=== PATIENT | male | born 1970 | race African-American/Black ===

== ENCOUNTER 2016-06-24 12:53 | Inpatient (IN) ==
[2016-06-24] MEDS ORDERED: LASIX IV ONE (13:35)
--- NOTE | 2016-06-24 14:14 | ED EKG INTERP ---
EKG Interpretation - EKG Time of EKG reading by physician:: 14:02 EKG Read and Signed by:: Ascencion Cramer EKG Interpretation (*Must complete 3 of following elements*): Abnormal Rate: 95 (possible left atrial enlargement; left ventricular hypertrophy; nonspecific T wave abnormality ) Rhythm: NSR Attestation - Scribe Verification/Attestation Scribe:: Karen Hogan Acting as Scribe for:: Ascencion Cramer Scribe documention review:: This chart was documented by a scribe and accurately reflects the service the provider performed and the decisions made by the provider.
[2016-06-24 14:24] LABS: MANUAL DIFF NEEDED? NO
[2016-06-24 14:27] LABS: BASO% 0.1 % (0.0-0.8); HEMATOCRIT 24.6 % (42.0-52.0); HEMOGLOBIN 8.5 g/dL (14.0-18.0); IMM GRAN# 0.03 X1000 (0.0-0.04); IMM GRAN% 0.2 % (0.0-0.5); LYMPH# 1.05 X1000 (1.2-3.4); LYMPH% 6.2 % (20.5-51.1); MCH 28.2 PG (27-31); MCHC 34.6 g/dL (33-37); MCV 81.7 FL (81-99); MONO# 1.44 X1000 (0.11-0.59); MONO% 8.5 % (1.7-9.3); MPV 9.9 FL (7.4-10.4); PLT 193 X1000 (130-400); RBC 3.01 XMIL (4.7-6.1)
[2016-06-24] MEDS ORDERED: LABETALOL IV ONE ×2 (14:37→16:22)
[2016-06-24] MEDS ORDERED: LEVAQUIN 750 MG/D5W 150 ML IV ONE (14:37)
--- NOTE | 2016-06-24 14:44 | PROVIDER DOCUMENTATION ---
HPI-Respiratory General - General Chief Complaint: Cough Stated Complaint: COUGH, CONGESTED Time Seen by Provider: 06/24/16 13:16 Source: patient Allergies/Adverse Reactions: Patient Allergies Allergy/AdvReac Type Severity Reaction Status Date / Time No Known Allergies Allergy Verified 06/24/16 13:08 Home Medications: Home Medication List Medication Instructions Recorded Confirmed Last Taken Type Labetalol [Trandate] 200 mg PO BID 09/26/15 06/24/16 06/24/16 History Clonidine HCl 0.2 mg PO TID #90 tablet 03/23/16 06/24/16 06/24/16 Rx Lisinopril 20 mg PO BID #60 tablet 03/23/16 06/24/16 06/24/16 Rx Minoxidil 2.5 mg PO BID 03/23/16 06/24/16 06/24/16 History Calcitriol 0.5 mcg PO DAILY 06/24/16 06/24/16 06/24/16 History Iron Fum,Ps/FA/Vit B with C #9 1 each PO DAILY 06/24/16 06/24/16 06/24/16 History [Integra Plus Capsule] - History of Present Illness-Resp Nature of Presenting Problem: 46 y/o M brought to the ER by his mother after she noticed that he is having a bad cough while at [employer]. Patient denies fever, chills, SOB, chest pain, however his mother stated that his breathing is worse. Patient has a history of chronic kidney disease and has an AV fistula placed in left forearm "in case he will need dialysis soon as per his mother". Severity in ED: reports: moderate Onset/Duration: reports: 2 days ago Timing: reports: still present Context: reports: other Cough Quality/Degree: reports: productive cough Episode Frequency: no prior episodes Current Respiratory Medication Therapy: Initiated none Modifying Factors: improves with: nothing Associated Symptoms: reports: short of breath Similar Symptoms Previously?: No Recently seen or treated by another doctor?: Yes Review of Systems - Adult - REVIEW OF SYSTEMS - ADULT Constitutional: reports: no symptoms reported Eyes: reports: no symptoms reported Ears, Nose, Mouth & Throat: reports: no symptoms reported Cardiovascular: denies: chest pain, edema, orthopnea Respiratory: reports: cough, dyspnea on exertion, excessive sputum production Gastrointestinal: reports: no symptoms reported Genitourinary: reports: no symptoms reported Integumentary: reports: no symptoms reported Neurological: reports: no symptoms reported Psychiatric: reports: no symptoms reported Endocrine: reports: no symptoms reported Allergic/Immunologic: reports: no symptoms reported Past History - Adult - PAST MEDICAL HISTORY-ADULT Review of Records: reports: Nursing Assessment Review, Medications Reviewed Major Childhood Illnesses: reports: denies history Cardiovascular: reports: HTN Respiratory: reports: denies history Gastrointestinal: reports: denies history Genitourinary: reports: ESRD, kidney disease Musculoskeletal: reports: orthopedic injury Neurological: reports: TIA - PRIOR SURGERIES/PROCEDURES Surgical/Procedure History: reports: orthopedic (extremity) (shoulder) - IMMUNIZATION STATUS Childhood Immunizations: See Nurse Assessment Flu Vaccine: See Nurse Assessment Physical Exam-General - PHYSICAL EXAM-ADULT Initial Vital Signs Reviewed: Yes - CONSTITUTIONAL General Appearance: moderate distress, anxious - EYES Eyes: PERRL/EOMI - HEAD, EARS, NOSE, MOUTH & THROAT HENMT: normocephalic/atraumatic - NECK Neck: supple - RESPIRATORY Respiratory: no pleuratic chest pain, crackles, rales, wheezing - CARDIOVASCULAR Cardiovascular: no JVD, tachycardia - GASTROINTESTINAL (ABDOMEN) Abdominal Exam: normal bowel sounds, soft - LYMPHATIC Lymphatic: no adenopathy - MUSCULOSKELETAL Peripheral Pulses: dorsalis-pedis (R): 1+, dorsalis-pedis (L): 1+ - SKIN Integumentary: warm/dry - NEUROLOGIC Neurologic: grossly normal - PSYCHIATRIC Psych/Mental Status: normal mood/affect, oriented x 3 Progress - PLAN OF CARE/RESULTS Progress/Plan/Lab Results: Vital Signs - 24 hr 06/24/16 06/24/16 12:56 13:31 Temperature 99.1 F Pulse Rate 97 H 88 Respiratory 18 18 Rate Blood Pressure 235/105 202/103 O2 Sat by Pulse 97 98 Oximetry Laboratory Tests 06/24/16 14:14 WBC 16.97 H RBC 3.01 L Hgb 8.5 L Hct 24.6 L MCV 81.7 MCH 28.2 MCHC 34.6 RDW Std Deviation 14.9 H Plt Count 193 MPV 9.9 Immature Gran % (Auto) 0.2 Neut % (Auto) 85.0 H Lymph % (Auto) 6.2 L Laurel % (Auto) 8.5 Eos % (Auto) 0.0 Baso % (Auto) 0.1 Immature Gran # (Auto) 0.03 Neut # (Auto) 14.43 H Lymph # (Auto) 1.05 L Laurel # (Auto) 1.44 H Eos # (Auto) 0.00 Baso # (Auto) 0.02 - REASSESSMENT Reassessment #1 Status: improving Reassessment Comment: Blood pressure is being controlled as per protocol. Antibiotics and lasix. - XRAY 1 XRAY: Bilateral XRAY Study: Chest Impression: Abnormal XRAY Interpretation: Bilateral infiltrates. - CONSULTS/PCP/HOSPITALIST Notification #1 *Consult/PCP/Hospitalist*: Dr. Wang Time Discussed: 16:14 Consult Disposition: Admit Departure - Departure Time of Disposition Order: 16:15 DIAGNOSIS: Community acquired pneumonia, Acute on chronic renal failure Disposition: ADMITTED INPATIENT 09 Certified Medical Emergency: Emergent Condition: Fair Referrals: Marshall To MD [Primary Care Provider] -
[2016-06-24 15:06] LABS: AGAP 16; ALBUMIN 3.8 g/dL (3.5-5.0); ALKALINE PHOSPHATASE 89 U/L (32-122); BUN 68 mg/dL (8-22); CALCIUM 8.8 mg/dL (8.8-10.2); CHLORIDE 107 mmol/L (98-107); COSMO 296; DIRECT BILIRUBIN < 0.20 mg/dL (0.00-0.20); GOT 13 U/L (10-34); GPT 14 U/L (10-44); MAGNESIUM 1.9 mg/dL (1.5-2.7); POTASSIUM 4.6 mmol/L (3.5-5.1); SODIUM 138 mmol/L (136-145); TCO2 15 mmol/L (25-35); TOTAL BILIRUBIN 0.54 mg/dL (0.20-1.00); TOTAL PROTEIN 7.1 g/dL (6.3-8.3)
--- NOTE | 2016-06-24 15:14 | Diag Imaging Result Document ---
PROCEDURE NAME: CHEST-2 VIEWS - 06/24/2016 FRONTAL AND LATERAL CHEST, 3 VIEWS COMPARISON: 09/26/15 FINDINGS: There are dense bilateral infiltrates. Heart is borderline mildly prominent. No pleural effusions. IMPRESSION: Interval development of dense, bilateral infiltrates.
[2016-06-24 15:56] LABS: URINE MICRO REVIEW NEEDED? NO; URINE SOURCE CLEAN CATCH
[2016-06-24 15:59] LABS: BILIRUBIN URINE NEGATIVE (NEGATIVE); BLOOD URINE TRACE (NEGATIVE); COLOR STRAW; GLUCOSE URINE NEGATIVE (NEGATIVE); LEUKOCYTES URINE NEGATIVE (NEGATIVE); NITRITE URINE NEGATIVE (NEGATIVE); PROTEIN URINE 100 mg/dL (NEGATIVE); SP GRAVITY URINE 1.007; TURBIDITY URINE CLEAR (CLEAR); UR EPITHELIAL CELLS <10 /HPF (<10); URINE BACTERIA NEGATIVE /HPF; URINE RBC <10 /HPF (<10); URINE WBC <10 /HPF (<10); UROBILINOGEN URINE NORMAL (NORMAL)
[2016-06-24] MEDS ORDERED: APRESOLINE IV PRN (16:27)
[2016-06-24] MEDS ORDERED: ZITHROMAX 500 MG/NS 250 ML IV SCH ×2 (16:45→17:30)
[2016-06-24] MEDS ORDERED: DUONEB (A & A) INH PRN (16:45)
[2016-06-24] MEDS: PROTONIX IV SCH (17:00)
[2016-06-24] MEDS ORDERED: SODIUM CHLORIDE 0.9% INJ SCH (17:00)
--- NOTE | 2016-06-24 18:11 | Diag Imaging Result Document ---
PROCEDURE NAME: CT THORAX W/O CONTRAST - 06/24/2016 STUDY: CT chest with intravenous contrast. PROTOCOL: Dose reduction protocol. There are dense multifocal bilateral infiltrates. Each lobe is involved although only a small portion of the right middle lobe is involved. Findings most pronounced in the right lower lobe. No pleural effusions. The heart is enlarged. No thoracic aortic aneurysm. There are several calcified mediastinal and right hilar lymph nodes. IMPRESSION: 1. Dense multifocal bilateral pneumonia. 2. Cardiomegaly. A preliminary report was given at 5:06 p.m.
[2016-06-24] MEDS: CATAPRES PO SCH (18:27)
[2016-06-24] MEDS: ROCEPHIN 1 GM/NS 50 ML IV SCH (18:27)
[2016-06-24] MEDS: DUONEB (A & A) INH SCH (20:27)
--- NOTE | 2016-06-24 22:26 | HISTORY AND PHYSICAL ---
WORKFORCE DEVELOPMENT ASSISTANT: Iggy Carver MD CHIEF COMPLAINT: Cough. Congestion. Chills. HISTORY OF PRESENT ILLNESS: Mr. Sparks is a 46-year-old, gentleman with a history of CKD 5 who is followed by Dr. Carver and is not yet on dialysis. He also has a history of hypertension, previous TIAs, he has a 24-48 hours of worsening shortness of breath, cough, subjective chills and dyspnea on exertion. He denies any overt chest pain. No lower extremity orthopnea, no PND. Symptoms worsened today to the point where he had come to the ER for evaluation. In the ER, he had a chest x-ray which showed bilateral infiltrates and his lab work was consistent with leukocytosis and he is hypertensive with his blood pressure. Otherwise, he is stable. Blood cultures have been started, and we are now going to admit him for community acquired pneumonia. PAST MEDICAL HISTORY: 1. CKD 5. 2. Hypertension. 3. Previous history of TIAs with no residual neurologic deficits. PAST SURGICAL HISTORY: AV fistula recently placed, but not in use, right rotator cuff repair. SOCIAL HISTORY: Patient is . He has 1 daughter. He denies tobacco or drug use. He drinks very occasional alcohol. He is on disability. FAMILY HISTORY: Mother and father are both at the bedside. Both with hypertension and hyperlipidemia. REVIEW OF SYSTEMS: Fourteen-point review of systems obtained and found to be negative with the exception of the HPI. HOME MEDICATIONS: Calcitriol 0.5 mcg p.o. daily. Integra Plus capsule 1 each daily. Trandate 10 mg b.i.d. Minoxidil 2.5 mg b.i.d. Clonidine 0.2 mg p.o. t.i.d. Lisinopril 20 mg b.i.d. ALLERGIES: No known drug allergies. REVIEW OF SYSTEMS: 14 point review of systems obtained and found to be negative with the exception of the HPI. PHYSICAL EXAMINATION: VITAL SIGNS: Blood pressure is 204/99, heart rate 88, respiratory 23, O2 saturation 97% on room air. Temperature is 99.1 degrees. GENERAL: This is a well-developed, well-nourished, male, lying in hospital bed. No acute distress. NEUROLOGIC: The patient is awake, alert, and oriented. Follows commands without focal deficits. HEENT: Head is atraumatic and normocephalic. His pupils are equal, round, reactive to light. Oral mucosa is moist. Trachea is midline. No JVD or carotid bruits. CHEST: Coarse bilaterally. No increased work of breathing noted. CARDIOVASCULAR: Regular rate and rhythm. S1-S2 is noted. No murmurs, gallops, clicks, rubs. GI: Soft, nondistended, nontender. Bowel sounds positive. EXTREMITIES: Without edema, clubbing or cyanosis. Pulses are palpable bilaterally. DIAGNOSTIC DATA: Chest x-ray shows dense infiltrates bilaterally. CT of the chest without contrast is pending. WBC 16.97, hemoglobin 8.5, hematocrit 24.6, platelet count 193,000. Sodium 138, potassium 4.6, chloride 107, CO2 15, anion gap 16, BUN 68, creatinine 6.8. LFTs within normal limits. Magnesium 1.9. ProBNP 14,814. Lactate 1.7. Urinalysis is negative for acute process. ASSESSMENT/PLAN: 1. Community-acquired pneumonia: Blood cultures have been obtained. Broad-spectrum antibiotics initiated. We will continue with breathing treatments, gross pulmonary toilet and follow radiograph in the morning. 2. Chronic kidney disease stage 5: We will consult Dr. Carver to follow tomorrow morning. We will follow his creatinine closely and try to bring down his blood pressure. 3. Hypertension: Elevated at this time. We will continue his home medications and add intravenous hydralazine, labetalol if needed. 4. Anemia: Likely chronic disease related. We will check iron studies and continue his multivitamin. We will also check thyroid function, hemoglobin A1c and lipids. 5. We will add intravenous Protonix for gastrointestinal prophylaxis and heparin subcutaneous for deep venous thrombosis prophylaxis given his renal failure. Dictated by JERRY Perez for Leander Alcaraz MD
[2016-06-24] MEDS: HEPARIN SUBQ SCH (23:05)
[2016-06-24] MEDS: PRINIVIL PO SCH (23:05)
[2016-06-24] MEDS: TRANDATE PO SCH (23:05)
[2016-06-24] MEDS: LONITEN PO SCH (23:05)
[2016-06-25] MEDS: DUONEB (A & A) INH SCH ×4 (03:00→20:10)
[2016-06-25 05:53] LABS: IRON SATURATION 11 %; TIBC 200 ug/dL
[2016-06-25 06:00] LABS: AGAP 17; ALBUMIN 3.6 g/dL (3.5-5.0); BUN 72 mg/dL (8-22); CALCIUM 8.7 mg/dL (8.8-10.2); CHLORIDE 105 mmol/L (98-107); COSMO 297; HDL 48 mg/dL (35-55); HEMATOCRIT 22.3 % (42.0-52.0); HEMOGLOBIN 7.6 g/dL (14.0-18.0); LDL 38 mg/dL; MCH 27.5 PG (27-31); MCHC 34.1 g/dL (33-37); MCV 80.8 FL (81-99); MPV 10.3 FL (7.4-10.4); POTASSIUM 5.2 mmol/L (3.5-5.1); RBC 2.76 XMIL (4.7-6.1); SODIUM 138 mmol/L (136-145); TCO2 16 mmol/L (25-35); TOTAL IRON 21 ug/dL (53-167); TRIGLYCERIDES 71 mg/dL (39-160); UNBOUND IRON 179 ug/dL (112-346); VLDL 14 mg/dL
[2016-06-25 07:41] LABS: HEMOGLOBIN A1C 4.6 % (4.8-6.0)
[2016-06-25] MEDS: CATAPRES PO SCH ×3 (11:00→17:51)
[2016-06-25] MEDS: HEMOCYTE PLUS CAPSULE PO SCH (11:00)
[2016-06-25] MEDS: ROCALTROL PO SCH (11:01)
[2016-06-25] MEDS: PRINIVIL PO SCH ×2 (11:01→20:46)
[2016-06-25] MEDS: LONITEN PO SCH ×2 (11:01→20:47)
[2016-06-25] MEDS: HEPARIN SUBQ SCH ×2 (11:01→20:47)
[2016-06-25] MEDS: TRANDATE PO SCH ×2 (11:02→20:47)
--- NOTE | 2016-06-25 12:50 | Diag Imaging Result Document ---
PROCEDURE NAME: CHEST-2 VIEWS - 06/25/2016 CHEST, 2 VIEWS: COMPARISON: 06/24/2016. FINDINGS: Stable cardiomegaly. Stable extensive bilateral alveolar infiltrates. No pneumothorax or significant effusion. There are Elliot B lines. IMPRESSION: No change from prior.
[2016-06-25] MEDS: ROCEPHIN 1 GM/NS 50 ML IV SCH (16:05)
[2016-06-25] MEDS ORDERED: ZITHROMAX 500 MG/NS 250 ML IV SCH (17:00)
[2016-06-25] MEDS: PROTONIX IV SCH (17:51)
--- NOTE | 2016-06-25 21:11 | CONSULTATION ---
DATE OF CONSULTATION: 06/25/2016 REASON FOR ADMISSION: Community-acquired pneumonia. REASON FOR CONSULTATION: Acute on chronic kidney disease, assist with medical management. CONSULTING PHYSICIAN: Dr. Wang. HISTORY OF PRESENT ILLNESS: This is a 46-year-old gentleman well known to us for chronic kidney disease stage 5 with a baseline creatinine of 6.4 who has a available AV fistula but has not had to start dialysis at this point. The patient states that over the last 2 or 3 previous days he had some upper respiratory symptoms that however during denominational services today he became significantly short of breath and was brought to the emergency room for further workup and treatment. Chest x-ray showed bilateral infiltrates and elevated white count. He was treated with azithromycin and has been waiting for a medical bed. We been asked to see him secondary to his chronic kidney disease and acute on chronic renal function currently. The patient states that he is otherwise been in his usual state of health. He has no nausea, vomiting, anorexia. He states his energy level is not changed. He states urine output has not changed. PAST MEDICAL HISTORY: Chronic kidney disease stage 5, hypertension, previous TIA with no residual effect, he has anemia of chronic disease and hyperparathyroidism secondary to renal disease. PAST SURGICAL HISTORY: AV fistula left upper extremity that is mature, right rotator cuff repair. ALLERGIES: No known drug allergies. HOME MEDICATIONS: Calcitriol, Integra Plus, Trandate, minoxidil, clonidine, lisinopril. FAMILY HISTORY: Hypertension and hyperlipidemia. SOCIAL HISTORY: No tobacco or drug use, very limited ETOH use. REVIEW OF SYSTEMS: Pertinent positives noted above in the HPI. PHYSICAL EXAMINATION: Vital Signs: Temperature 99.3 degrees, pulse 98, respiratory rate 18, blood pressure 180/95, intake and output have not been measured. He is voiding. General: Middle-aged gentleman resting in bed. Awake alert, oriented x4 no acute distress. HEENT: Normocephalic, atraumatic. ASHANTI, conjunctivae pink. Oral mucosa is moist, dentition excellent. Neck: Supple, trachea midline. There is no JVD noted. Cardiovascular: Regular rate and rhythm. There is no murmur or gallop appreciated. Pulmonary: He has equal excursion. He does have rhonchi, rales noted bilaterally. He has no overt wheeze. He is on O2 supplementation via nasal cannula. Abdomen: Soft, positive bowel sounds. : Not inspected. He is voiding without difficulty. Extremities: No clubbing, cyanosis or edema. AV fistula to left upper extremity with a positive thrill. Integumentary: Skin is warm and dry without rash or lesion. Neuro: Grossly nonfocal. LAB DATA: WBC of 13.1, hemoglobin 7.6, hematocrit 22.3, platelet count of 192, 000. Sodium 138, potassium 5.2, CO2 , BUN 72, creatinine 7.2, calcium 8.7, phosphorus 3.2, albumin 3.6, magnesium 1.9. Has a ProBNP 14,800, lactate 1.7. He has positive proteinuria noted on a urinalysis. ASSESSMENT AND PLAN: 1. Chronic kidney disease stage 5 with acute kidney injury likely secondary to pneumonia as well as elevated blood pressure. He is on appropriately dosed antibiotics, will make no changes to that. We will adjust his minoxidil see if we can get some better control of this blood pressure. He has no absolute indication for dialysis at this time but he does have an AV fistula that is available if that need arises. Did discuss this with the patient and he is understanding of this. 2. Anemia chronic kidney disease. He is followed by Dr. Cervantes for iron infusion. I would hold those while he is in the hospital with active infection. Do agree with obtaining iron studies. 3. Electrolytes and acid-base balance. His electrolytes are acceptable, his acid-based balance he is a little bit acidotic. Will add some sodium bicarbonate. 4. Fluid volume. He is voiding, he does not appear overloaded on exam. Data reviewed, discussed with Sabra Ward on 06/25/16. I agree with the above assessment and plan of care. rg Dictated by JERRY Purcell for Iggy Carver MD [facility]
[2016-06-26] MEDS: DUONEB (A & A) INH SCH (03:48)
[2016-06-26 07:37] VITALS: BP 160/76
[2016-06-26 07:41] LABS: HEMATOCRIT 21.8 % (42.0-52.0); HEMOGLOBIN 7.2 g/dL (14.0-18.0); MCH 27.6 PG (27-31); MCV 83.5 FL (81-99); MPV 10.4 FL (7.4-10.4); RBC 2.61 XMIL (4.7-6.1)
[2016-06-26 07:58] LABS: ALBUMIN 3.2 g/dL (3.5-5.0); CALCIUM 8.5 mg/dL (8.8-10.2); POTASSIUM 4.7 mmol/L (3.5-5.1)
[2016-06-26] MEDS: HEPARIN SUBQ SCH (08:55)
[2016-06-26] MEDS: CATAPRES PO SCH (08:55)
[2016-06-26] MEDS: ROCALTROL PO SCH (08:56)
[2016-06-26] MEDS: LONITEN PO SCH (08:56)
[2016-06-26] MEDS: TRANDATE PO SCH (08:56)
[2016-06-26] MEDS: HEMOCYTE PLUS CAPSULE PO SCH (08:56)
[2016-06-26] MEDS ORDERED: FLUZONE QUAD 2016-2017 SYRINGE IM ONE (09:14)
--- NOTE | 2016-06-26 14:53 | DISCHARGE SUMMARY ---
ADMISSION DATE: 06/24/2016 DISCHARGE DATE: 06/26/2016 HISTORY OF PRESENT ILLNESS: This is a 46-year-old came with cough, congestion, chills had a history of chronic kidney disease stage [address] Carver not yet on dialysis. Also had a history of hypertension, previous TIAs, had a 24-48 hour worsening shortness of breath, cough, subjective chills, dyspnea on exertion, denied any overt chest pain. No lower extremity orthopnea or PND. Symptoms worsened day admission when he came to the emergency room. Chest x- ray showed bilateral infiltrates and lab work was consistent with leukocytosis. He had hypertension and blood pressure. Otherwise he was stable. PAST MEDICAL HISTORY: Reviewed again, chronic kidney disease stage 5, hypertension, previous history TIAs with no neurologic deficits. HOSPITAL COURSE: He was admitted with community-acquired pneumonia. Blood cultures were obtained. Broad-spectrum antibiotics started with underlying chronic kidney disease Dr. Carver has followed. Chest x-ray showed no change, stable extensive bilateral alveolar infiltrates. No significant effusion. He remained stable and breathing was much more comfortable and Dr. Carver followed, did not see any change, did adjust his minoxidil see if he can get better control blood pressure. Patient felt much better on 06/26/2016 and requested to go home. Chest CT was done, it showed dense multifocal bilateral pneumonia and clinically improved. No growth from blood cultures. [place] he could go home. Will continue him on antibiotics, he is getting Rocephin. I will let him go home on Levaquin 250 mg p.o. daily for another 7 days. Can follow up with his primary care, with Dr. Carver. DISCHARGE MEDICATIONS: He will take his calcitriol 0.5 mg daily, Catapres 0.25 mg p.o. t.i.d., Trandate 200 mg b.i.d., Prinivil 20 mg b.i.d., minoxidil 5 mg b.i.d., multivitamin with Hemocyte Plus capsule once a day. FOLLOWUP: He is to follow up with primary care and also follow up with Dr. Carver.
--- NOTE | 2016-06-26 16:33 | PROGRESS NOTE ---
DATE: 06/26/2016 SUBJECTIVE: Mr. Sparks is resting quietly on the side of the bed. He is currently dressed. He states that he is being discharged home. He is to take oral antibiotics for his pneumonia with plans to follow up in our office in 1-2 weeks with labs at the end of the week. OBJECTIVE: His most recent vital signs: His temperature is 98.5 degrees, blood pressure 160/76, heart rate 93, respirations 20. He is on room air, last recorded saturation 96% . He has had 240 in. He has had 200+ out void. LABS: Sodium 140, potassium 4.7, chloride 107, CO2 16, BUN 73, creatinine 7.1, glucose is 104. His anion gap is 17, calcium 8.5, phosphorus 3.6, albumin 3.2. White count 10.82, hemoglobin 7.2, hematocrit 21.8, with a platelet count of 178,000. PHYSICAL EXAMINATION: General: This is a 46-year-old male. He is currently resting in bed. He is in no acute distress. Skin: Warm and dry. HEENT: Normocephalic, atraumatic. Conjunctivae pale. He has ASHANTI. Mucous membranes moist. Neck: Supple. Trachea midline. No JVD. Cardiovascular: Regular rate and rhythm. No murmur or gallop appreciated. Lungs: Clear to auscultation anteriorly. Equal excursion. He has no overt wheezes, crackles or rhonchi. He is currently on room air. Abdomen: Soft, nontender. Positive bowel sounds. Genitourinary: Not inspected. He has adequate urine out without difficulty voiding. Extremities: Have no clubbing or cyanosis. AV fistula remains to the left upper extremity, this has positive thrill, no drainage noted. Integumentary: Skin is warm and dry without rashes or lesions. Neurological: Alert and oriented x3. ASSESSMENT AND PLAN: 1. Acute kidney injury on chronic kidney disease stage 5. Patient's acute kidney injury has continued to improve. This is more than likely secondary to his pneumonia with an elevated blood pressure. He is currently on renal dosed antibiotics of Levaquin 250 mg once daily to be taken at home upon discharge. We have discussed coming in to our office with labs on Saturday and will further evaluation after his labs are obtained. Otherwise electrolytes and acid-base balance are stable. 2. Anemia. This remains stable but low. I would like to thank you for allowing us to follow with this patient. Data reviewed, discussed with Soraya Glynn on 06/26/16. I agree with the above assessment and plan of care. rg Dictated by JERRY Silva for Iggy Carver MD [facility]
== END 2016-06-26 09:34 | disposition home or self-care (01) | DRG 194 ==
LOC: ED 12:53 → UNDOADMIN 16:30 → EDIPHOLD 16:30 → 3N 20:10 → UNDOADMIN 20:10 → EDIPHOLD 20:29 → 3N 20:29
PROVIDERS: ATTEND Emergency Medicine
DX: J18.9 Pneumonia, unspecified organism (principal); N17.9 Acute kidney failure, unspecified; I12.0 Hypertensive chronic kidney disease with stage 5 chronic kidney disease or end stage renal disease; N18.5 Chronic kidney disease, stage 5; N25.81 Secondary hyperparathyroidism of renal origin; D63.8 Anemia in other chronic diseases classified elsewhere; Z86.73 Personal history of transient ischemic attack (TIA), and cerebral infarction without residual deficits; Z82.49 Family history of ischemic heart disease and other diseases of the circulatory system; Z79.899 Other long term (current) drug therapy
CPT/HCPCS: 71020; 71250; 80048; 80061; 80069; 80076; 81001; 82607; 82746; 83036; 83540; 83550; 83605; 83735; 83880; 84439; 85025; 85027; 87040; 94640; 94760; 94761; 94799; C9113; J0456; J0696; J1644; J1940; Q2038; S0139; S0164

== ENCOUNTER 2016-10-06 17:01 | Inpatient (IN) ==
--- NOTE | 2016-10-06 18:01 | PROVIDER DOCUMENTATION ---
Addendum entered and electronically signed by Melquiades Zelaya PA 10/08/16 17: 28: Progress - PLAN OF CARE/RESULTS Progress/Plan/Lab Results: Orders Category Date Time Status Admit - [facility] - [employer] [facility] [employer] [facility] Routine AdmDCTranf 10/06/16 20:37 Ordered Activity - Up with Assistance ORDERED Care 10/06/16 20:37 Active Guerrero Cath Insertion ORDERED Care 10/06/16 18:23 Completed Intake and Output-Strict ORDERED Care 10/06/16 20:37 Active Nursing- MD Consult Request ROUTINE Care 10/06/16 18:51 Completed Nursing- MD Consult Request ROUTINE Care 10/06/16 18:52 Completed Nursing- MD Consult Request ROUTINE Care 10/06/16 18:52 Completed Vital Signs Order Q1H Care 10/06/16 20:37 Completed Z-Document. for Tele Applied ORDERED Care 10/06/16 20:37 Active MD [Physician/Provider Consults] Routine Cons 10/06/16 18:50 Ordered MD [Physician/Provider Consults] Routine Cons 10/06/16 18:51 Ordered MD [Physician/Provider Consults] Routine Cons 10/06/16 18:52 Ordered Social Service Consult Routine Cons 10/06/16 20:37 Active NPO Diet 10/06/16 19:08 Completed CHEST-PORTABLE [RAD] Routine Exams 10/07/16 06:00 Completed CHEST-PORTABLE [RAD] Stat Exams 10/06/16 18:11 Completed ABG [RESP] Routine Lab 10/06/16 18:15 Completed ABG [RESP] Routine Lab 10/06/16 20:47 Completed ABG [RESP] Routine Lab 10/07/16 04:23 Completed CBC WITH DIFF [HEME] Routine Lab 10/07/16 04:20 Completed CBC WITH DIFF [HEME] Stat Lab 10/06/16 17:59 Completed CK TOTAL [CHEM] Q8H Lab 10/06/16 22:01 Completed CK TOTAL [CHEM] Q8H Lab 10/07/16 04:20 Completed CK TOTAL [CHEM] Q8H Lab 10/07/16 12:14 Completed COMPREHENSIVE METABOLIC PANEL [CHEM] Routine Lab 10/07/16 04:20 Completed COMPREHENSIVE METABOLIC PANEL [CHEM] Stat Lab 10/06/16 17:59 Completed Ddimer [D-DIMER] [CHEM] Stat Lab 10/06/16 17:59 Completed MAGNESIUM [CHEM] Routine Lab 10/07/16 04:20 Completed PRO B-NATRIURETIC PEPTIDE Stat Lab 10/06/16 17:59 Completed PROTIME WITH INR [COAG] Routine Lab 10/07/16 04:20 Completed PTT [COAG] Routine Lab 10/07/16 04:20 Completed TROPONIN T Q8H Lab 10/06/16 22:01 Completed TROPONIN T Q8H Lab 10/07/16 04:20 Completed TROPONIN T Q8H Lab 10/07/16 12:14 Completed TSH Stat Lab 10/06/16 22:01 Completed UA NIMS W/REFLEX CULT [URINALYSIS] Stat Lab 10/08/16 08:30 Completed Bumetanide [Bumex] Med 10/06/16 18:08 Discontinued 1 mg IV NOW ONE Bumetanide [Bumex] Med 10/06/16 18:03 Discontinued 2 mg .ROUTE .STK-MED ONE Heparin Med 10/06/16 21:00 Active 5,000 unit SUBQ Q12H Ipratropium [place] Neb [Atrovent Neb] Med 10/06/16 20:37 Active 0.5 mg INH RTQ4H Labetalol Med 10/06/16 18:18 Discontinued 20 mg .ROUTE .STK-MED ONE Labetalol Med 10/06/16 18:18 Discontinued 40 mg IV NOW ONE Levalbuterol Neb [Xopenex Neb] Med 10/06/16 20:37 Active 1.25 mg INH RTQ4H Nitroglycerin Med 10/06/16 18:38 Discontinued 1 inch .ROUTE .STK-MED ONE Nitroglycerin 50 mg/D5w Med 10/06/16 18:51 Discontinued 50 mg in 250 ml .ROUTE As Directed Nitroglycerin 50 mg/D5w Med 10/06/16 18:48 Active 50 mg in 250 ml IV 5 microgm/min Ondansetron [Zofran] Med 10/06/16 20:37 Active 4 mg IV Q4H PRN PRN Aerosol Treatments Routine Oth 10/06/16 20:37 Completed BIPAP Stat Oth 10/06/16 18:23 Completed Pulse Oximetry Routine Oth 10/06/16 20:37 Completed Telemetry [OM.EQ] Routine Oth 10/06/16 20:37 Active EKG [EKG] Routine Ther 10/07/16 08:00 Draft Echo Spec/Color Dop W/O Contra Routine Ther 10/06/16 20:37 Completed Transfer/Admit Order [TRANSFER] Routine Transfer 10/06/16 18:[address] Crain was notified when the patient decompensated. He went to the bedside and examined the patient. Dr. Crain agreed with all interventions and the plan of care, and contacted the hospitalist, Dr. Aleman, for admission. Result Diagrams: 10/07/16 04:20 10/07/16 04:20 Original Note: HPI-Respiratory General - General Chief Complaint: B/P Problems Stated Complaint: HIGH B/P,EDEMA Time Seen by Provider: 10/06/16 17:43 Source: patient, family Allergies/Adverse Reactions: Patient Allergies Allergy/AdvReac Type Severity Reaction Status Date / Time No Known Allergies Allergy Verified 06/24/16 13:08 Home Medications: Home Medication List Medication Instructions Recorded Confirmed Last Taken Type Labetalol [Trandate] 200 mg PO BID 09/26/15 06/24/16 06/24/16 History Clonidine HCl 0.2 mg PO TID #90 tablet 03/23/16 06/24/16 06/24/16 Rx Lisinopril 20 mg PO BID #60 tablet 03/23/16 06/24/16 06/24/16 Rx Calcitriol 0.5 mcg PO DAILY 06/24/16 06/24/16 06/24/16 History Iron Fum,Ps/FA/Vit B with C #9 1 each PO DAILY 06/24/16 06/24/16 06/24/16 History [Integra Plus Capsule] Levofloxacin [Levaquin] 250 mg PO DAILY #7 tablet 06/26/16 Unknown Rx Minoxidil [Loniten] 5 mg PO BID #60 tablet 06/26/16 Unknown Rx - History of Present Illness-Resp Nature of Presenting Problem: 46 YO BM with stage 4 renal failure presents with bilateral leg swelling x 2 days, HTN and SOB. NO hx of CHF; had pneumonia recently. Took one 40 mg Lasix today but otherwise isn't on a diuretic. Has had increased urination in the past few weeks. Took all of his BP meds today. Denies abdominal pain, fever, cough, chest pain. Not on dialysis, sees Dr. Carver regularly and is stable at stage 4. Quality of Pain: reports: pressure, tightness Severity in ED: reports: moderate Onset/Duration: reports: 2 days ago Timing: reports: still present Cough Quality/Degree: reports: no cough Episode Frequency: no prior episodes Current Respiratory Medication Therapy: Initiated none Modifying Factors: improves with: nothing Associated Symptoms: reports: shortness of breath. denies: chest pain/soreness , cough, dizziness, earache, facial pain, fever/chills, flu-like symptoms, headache, heart racing, hurts to breathe, hyperventilating, lightheadedness, muscle/bodyaches, nasal congestion, nasal drainage, sinus pain, sore throat, sweaty, wheezing Similar Symptoms Previously?: No Recently seen or treated by another doctor?: Yes (Dr. Cervantes) Review of Systems - Adult - REVIEW OF SYSTEMS - ADULT Constitutional: denies: chills, fever Eyes: denies: decreased vision, blurred vision, double vision Ears, Nose, Mouth & Throat: denies: ear pain, epistaxis, sinus problem, throat pain, throat swelling Cardiovascular: denies: chest pain, orthopnea, palpitations, syncope Respiratory: reports: shortness of breath. denies: chronic cough, cough, wheezing Gastrointestinal: denies: abdominal pain, diarrhea, nausea, vomiting Genitourinary: reports: frequency. denies: dysuria, discharge, hematuria, urgency Musculoskeletal: denies: bone pain, back pain, joint pain, joint swelling, neck pain Integumentary: denies: itching, rash, skin sores/ulcer, skin thickening Neurological: denies: dizziness/vertigo, headache/migraines Past History - Adult - PAST MEDICAL HISTORY-ADULT Review of Records: reports: Old Records Reviewed, Nursing Assessment Review, Medications Reviewed Major Childhood Illnesses: reports: denies history Cardiovascular: reports: HTN Respiratory: reports: denies history Gastrointestinal: reports: denies history Genitourinary: reports: ESRD, kidney disease Musculoskeletal: reports: orthopedic injury Neurological: reports: TIA - PRIOR SURGERIES/PROCEDURES Surgical/Procedure History: reports: orthopedic (extremity) (shoulder) - IMMUNIZATION STATUS Childhood Immunizations: See Nurse Assessment Flu Vaccine: See Nurse Assessment Physical Exam-General - PHYSICAL EXAM-ADULT Initial Vital Signs Reviewed: Yes - CONSTITUTIONAL General Appearance: appears well, alert, no apparent distress - EYES Eyes: PERRL/EOMI, pink conjunctivae. negative: anisocoria, conjuctival exudate , pale conjunctivae, photophobia, sclera injected, scleral icterus - HEAD, EARS, NOSE, MOUTH & THROAT HENMT: normocephalic/atraumatic, moist mucous membranes, pharynx normal. negative: angioedema, pharyngeal erythema, tonsillar exudate - NECK Neck: full range of motion, supple, normal inspection - RESPIRATORY Respiratory: chest non-tender, lungs clear, normal breath sounds, no pleuratic chest pain, no respiratory distress, no accessory muscle use, decreased breath sounds (lower right lobe). negative: crackles, rales, rhonchi, stridor, wheezing, retractions, splinting, decreased rate - CARDIOVASCULAR Cardiovascular: normal peripheral pulses, regular rate, rhythm, no gallop, no JVD, no murmur. negative: no edema - GASTROINTESTINAL (ABDOMEN) Abdominal Exam: normal bowel sounds, non tender, soft, no organomegaly, no pulsatile mass. negative: distended, guarding, rigid, rebound, tenderness - MUSCULOSKELETAL Extremity: normal range of motion, non-tender, no calf tenderness, swelling. negative: normal inspection (1+ pitting edema bilateral lower extremities. No cellulitis), no pedal edema (as above), deformity, erythema, inflammation, joint effusion Peripheral Pulses: radial (R): 3+, radial (L): 3+, dorsalis-pedis (R): 3+, dorsalis-pedis (L): 3+ - SKIN Integumentary: normal color, warm/dry, swelling - NEUROLOGIC Neurologic: rack pusher II-XII nml as tested, grossly normal - PSYCHIATRIC Psych/Mental Status: normal mood/affect, normal thought content, normal thought process Progress - PLAN OF CARE/RESULTS Progress/Plan/Lab Results: Vital Signs - 8 hr 10/06/16 17:24 10/06/16 18:12 10/06/16 18:23 Temperature 99.1 F Pulse Rate 92 H 113 H 102 H Respiratory Rate 18 29 H 30 H Blood Pressure 231/107 285/177 O2 Sat by Pulse Oximetry 98 90 L 91 L 10/06/16 18:29 10/06/16 18:33 10/06/16 18:37 Temperature Pulse Rate 82 81 83 Respiratory Rate 30 H 28 H 26 H Blood Pressure 208/120 191/116 O2 Sat by Pulse Oximetry 94 L 97 94 L 10/06/16 18:59 Temperature Pulse Rate 77 Respiratory Rate 28 H Blood Pressure 221/154 O2 Sat by Pulse Oximetry 97 Laboratory Results - last 24 hr 10/06/16 10/06/16 10/06/16 17:59 17:59 17:59 WBC 4.44 L RBC 3.76 L Hgb 11.0 L Hct 31.9 L MCV 84.8 MCH 29.3 MCHC 34.5 RDW Std Deviation 15.8 H Plt Count 178 MPV 10.0 Immature Gran % (Auto) 0.0 Neut % (Auto) 57.0 Lymph % (Auto) 25.2 Hyde % (Auto) 9.7 H Eos % (Auto) 7.2 Baso % (Auto) 0.9 H Immature Gran # (Auto) 0.00 Neut # (Auto) 2.53 Lymph # (Auto) 1.12 L Hyde # (Auto) 0.43 Eos # (Auto) 0.32 Baso # (Auto) 0.04 D-Dimer 1.34 H Specimen Type Sample Site pH pCO2 pO2 HCO3 Base Excess Oxyhemoglobin ABG O2 Sat (Calculated) ABG O2 Saturation ABG Carboxyhemoglobin ABG Methemoglobin Dillon Test A-a O2 Difference Total Hemoglobin Lactate Blood Gas Modality FiO2 % Sodium 143 Potassium 4.7 Chloride 105 Carbon Dioxide 21 L Anion Gap 17 BUN 62 H Creatinine 6.8 H Estimated GFR/1.73 m2 11 BUN/Creatinine Ratio 9 Glucose 93 Calculated Osmolality 302 Calcium 9.5 Total Bilirubin 0.50 AST 11 ALT 18 Alkaline Phosphatase 64 Qdc-P-Nwndomfjkjp Pept Total Protein 7.1 Albumin 4.5 Globulin 2.6 Albumin/Globulin Ratio 1.7 10/06/16 10/06/16 17:59 18:15 WBC RBC Hgb Hct MCV MCH MCHC RDW Std Deviation Plt Count MPV Immature Gran % (Auto) Neut % (Auto) Lymph % (Auto) Hyde % (Auto) Eos % (Auto) Baso % (Auto) Immature Gran # (Auto) Neut # (Auto) Lymph # (Auto) Hyde # (Auto) Eos # (Auto) Baso # (Auto) D-Dimer Specimen Type ARTERIAL Sample Site R RADIAL pH 7.16 L* pCO2 63 H* pO2 67 HCO3 19.6 L Base Excess -6.7 L Oxyhemoglobin 90.9 L ABG O2 Sat (Calculated) 14.1 L ABG O2 Saturation 94.9 L ABG Carboxyhemoglobin 4.20 H ABG Methemoglobin 0.0 Dillon Test YES A-a O2 Difference 567.0 Total Hemoglobin 11.0 L Lactate 1.00 Blood Gas Modality NRB FiO2 % 100.0 Sodium Potassium Chloride Carbon Dioxide Anion Gap BUN Creatinine Estimated GFR/1.73 m2 BUN/Creatinine Ratio Glucose Calculated Osmolality Calcium Total Bilirubin AST ALT Alkaline Phosphatase Uda-B-Dhnthgbfefz Pept 8651 H Total Protein Albumin Globulin Albumin/Globulin Ratio Orders Category Date Time Status Guerrero Cath Insertion ORDERED Care 10/06/16 18:23 Active Nursing- MD Consult Request ROUTINE Care 10/06/16 18:51 Active Nursing- MD Consult Request ROUTINE Care 10/06/16 18:52 Active Nursing- MD Consult Request ROUTINE Care 10/06/16 18:52 Active MD [Physician/Provider Consults] Routine Cons 10/06/16 18:50 Ordered MD [Physician/Provider Consults] Routine Cons 10/06/16 18:51 Ordered MD [Physician/Provider Consults] Routine Cons 10/06/16 18:52 Ordered CHEST-PORTABLE [RAD] Stat Exams 10/06/16 18:11 Completed ABG [RESP] Routine Lab 10/06/16 18:15 Completed CBC WITH DIFF [HEME] Stat Lab 10/06/16 17:59 Completed COMPREHENSIVE METABOLIC PANEL [CHEM] Stat Lab 10/06/16 17:59 Completed Ddimer [D-DIMER] [CHEM] Stat Lab 10/06/16 17:59 Completed PRO B-NATRIURETIC PEPTIDE Stat Lab 10/06/16 17:59 Completed UA NIMS W/REFLEX CULT [URINALYSIS] Stat Lab 10/06/16 17:56 Uncollected Bumetanide [Bumex] Med 10/06/16 18:08 Discontinued 1 mg IV NOW ONE Bumetanide [Bumex] Med 10/06/16 18:03 Discontinued 2 mg .ROUTE .STK-MED ONE Furosemide [Lasix] 200 mg Med 10/06/16 20:00 Active 0.9% Sodium Chloride Inj [Ns] 25 ml IV Q8H Labetalol Med 10/06/16 18:18 Discontinued 20 mg .ROUTE .STK-MED ONE Labetalol Med 10/06/16 18:18 Discontinued 40 mg IV NOW ONE Nitroglycerin Med 10/06/16 18:38 Discontinued 1 inch .ROUTE .STK-MED ONE Nitroglycerin 50 mg/D5w Med 10/06/16 18:51 Discontinued 50 mg in 250 ml .ROUTE As Directed Nitroglycerin 50 mg/D5w Med 10/06/16 18:48 Active 50 mg in 250 ml IV 5 microgm/min BIPAP Stat Oth 10/06/16 18:23 Completed EKG [EKG] Stat Ther 10/06/16 17:56 Ordered Transfer/Admit Order [TRANSFER] Routine Transfer 10/06/16 18:52 Ordered -A nurse stopped in the hallway to tell me that the pt was in distress. I called for Melquiades Zelaya PA-C, to assist. Upon listening to the pt's lungs it was apparent that he was in possible flash pulmonary edema. I placed him on a NRB, paged respiratory, ordered Bumex and had a BiPAP brought down. After medication administered pt is now stable and feeling significantly better. hospitalist service will be called for admission. - Joao Ureña PA-C Result Diagrams: 10/06/16 17:59 10/06/16 17:59 - REASSESSMENT Reassessment #1 Time Reassessed: 19:40 (Received a call from the front, pt went into respiratory distress. Joao Ureña PA-C was in the hallway and placed pt on O2 and Bipap, given Bumex and pt was able to recover breathing. Discussed elevated BP with Dr. Crain, recommends Labetolol 40 mg IV. BP came down after administration. Started Nitro paste and kept on Bipap. Pt feeling better after treatment. Recommend admission to ICU and consult with Dr. Carver. Discussed with Dr. Aleman who is admitting pt. ) - CONSULTS/PCP/HOSPITALIST Notification #1 *Consult/PCP/Hospitalist*: Dr. Aleman, Hospitalist Time Discussed: 18:30 (Consult for admission due to flash pulmonary edema, stage 4 renal failure. Needs consult with Dr. Carver) Consult Disposition: Will see in ED, Admit Departure - Departure Date of Disposition Decision: 10/06/16 Time of Disposition Decision: 18:30 DIAGNOSIS: Stage 4 chronic kidney disease, Flash pulmonary edema HTN (hypertension) Qualifiers: Hypertension type: renovascular hypertension Qualified Code(s): I15.0 - Renovascular hypertension Disposition: ADMITTED INPATIENT 09 Certified Medical Emergency: Emergent Condition: Stable Referrals and Follow-Ups: Marshall To MD [Primary Care Provider] - - Critical Care Note This patient required my direct & personal management of CC.: Yes Total Time (mins): 31 (Joao Ureña PA-C, started care in the room for respiratory failure, started O2, bipap and medication IV prior to my arrival. ) Critical Care Statement: This patient required my direct personal management to treat or rule out processes, the absence of which, could potentiallly result in sudden, clinically significant life or limb threatening deterioration. Attestation - Physician/ CINDY Attestation Patient care was provided by Advanced Practice Provider:: Yes Advanced Practice Provider:: Melquiades Zelaya Advanced Practice Provider documentation review:: The Mid-level provider documentation, treatment plan and medical decision making was reviewed by the physician who agrees with all treatment and medical decision making by the MLP.
[2016-10-06] MEDS ORDERED: BUMEX ONE (18:03)
[2016-10-06] MEDS ORDERED: BUMEX IV ONE (18:08)
[2016-10-06 18:15] LABS: MANUAL DIFF NEEDED? NO
[2016-10-06 18:17] LABS: BASO% 0.9 % (0.0-0.8); EOS# 0.32 X1000 (0.0-0.7); EOS% 7.2 % (0.0-10.0); HEMATOCRIT 31.9 % (42.0-52.0); LYMPH# 1.12 X1000 (1.2-3.4); LYMPH% 25.2 % (20.5-51.1); MCH 29.3 PG (27-31); MCHC 34.5 g/dL (33-37); MCV 84.8 FL (81-99); MONO# 0.43 X1000 (0.11-0.59); MONO% 9.7 % (1.7-9.3); PLT 178 X1000 (130-400); RBC 3.76 XMIL (4.7-6.1)
[2016-10-06] MEDS ORDERED: LABETALOL ONE (18:18)
[2016-10-06] MEDS ORDERED: LABETALOL IV ONE ×2 (18:18→20:12)
[2016-10-06 18:24] LABS: ALLEN TEST YES; BE -6.7 mmoll (-3.0-3.0); BLOOD TYPE ARTERIAL; DRAW SITE R RADIAL; O2(CT) 14.1 mL/dL (15.0-23.0); PO2(98.6) 67 mmHg (60-100); SAMPLE BLOOD; SAO2 94.9 % (95.0-100.0)
[2016-10-06 18:25] LABS: MODALITY NRB
[2016-10-06 18:26] LABS: PCO2(98.6) 63 mmHg (35-45); pH(98.6) 7.16 (7.35-7.45)
[2016-10-06] MEDS ORDERED: NITROGLYCERIN ONE (18:38)
[2016-10-06 18:50] LABS: ALBUMIN 4.5 g/dL (3.5-5.0); CALCIUM 9.5 mg/dL (8.8-10.2); POTASSIUM 4.7 mmol/L (3.5-5.1); TOTAL BILIRUBIN 0.5 mg/dL (0.20-1.00); TOTAL PROTEIN 7.1 g/dL (6.3-8.3)
[2016-10-06] MEDS ORDERED: NITROGLYCERIN 50 MG/D5W 50 MG/250 ML IV.SOLN ONE (18:51)
[2016-10-06] MEDS ORDERED: LASIX IV SCH (19:15)
--- NOTE | 2016-10-06 19:15 | Diag Imaging Result Doc PS360 ---
CHEST-PORTABLE - 10/06/2016 INDICATION: hypertension/pulmonary edema TECHNIQUE: COMPARISON: 06/25/2016 FINDINGS: There is moderate cardiomegaly. There are significant diffuse bilateral predominantly alveolar infiltrates/edema. There are small to moderate pleural effusions. IMPRESSION: See findings. Electronically signed by Cole Guzmán 10/06/2016 7:12 PM
[2016-10-06] MEDS: NITROGLYCERIN 50 MG/D5W 50 MG/250 ML IV.SOLN IV SCH ×5 (19:27→21:20)
--- NOTE | 2016-10-06 19:43 | HISTORY AND PHYSICAL ---
HISTORY OF PRESENT ILLNESS: 46-year-old who presented to the emergency room, stated he is having some swelling in his feet for last week, last couple days in particular, swelling got a little worse and complained more dyspnea on exertion. Denied any orthopnea or paroxysmal nocturnal dyspnea, no chest pain. By time he got to emergency room he was very short of breath and complains orthopnea. Blood pressure was elevated systolic 180s-200s and diastolic 110 and above. PAST MEDICAL HISTORY: 1. He has history of end-stage kidney disease is chronic kidney disease stage 5. He does have a left arm fistula in preparations for dialysis. 2. Hypertension. 3. Previous TIAs and no residual deficits. PAST SURGICAL HISTORY: AV fistula left arm but not in use, history right rotator cuff repair. SOCIAL HISTORY: , 1 daughter, denied tobacco or drug use. Does use occasional alcohol. FAMILY HISTORY: Mother and father both deny any history other than hypertension, hyperlipidemia. REVIEW OF SYSTEMS: He was on BiPAP. Did not obtain a complete review of systems, struggling to breathe. MEDICATIONS: The best I can tell he is on Calcitriol 0.5 mcg daily, Plus capsule 1 a day, Trandate 10 mg b.i.d., minoxidil 2.5 b.i.d., clonidine 0.2 mg t.i.d., lisinopril 20 mg b.i.d. ALLERGIES: No known drug allergies. PHYSICAL EXAM: In the emergency room. On BiPAP sitting up. NECK: Veins 12 cm water pressure. LUNGS: He has rales in the lower 1/4 both lung burciaga HEART: I do appreciate an S3 gallop. He is in sinus tachycardia, elevated blood pressures with systolic 285 and 177 when he came in May 2007 120, 191, over 116, pulse 80, respirations 20. EXTREMITIES: Has 2+ to 3+ pitting edema the ankles to his knee. ASSESSMENT AND PLAN: 1. Appears to have edema, flash edema and I suspect this related to the elevated blood pressure increased afterload. Looking back at previous study I am not sure we ever got an echocardiogram, he had an abdominal ultrasound on 09/25/2016, increased renal cortical echotexture bilaterally nonspecific essentially unremarkable abdominal ultrasound. We are going to try some IV nitroglycerin has an inch of nitroglycerine paste this time and try and keep him on BiPAP and I will hit him with Lasix. We will start off with probably a 200 mg IV Lasix now because his renal poor GFR see if we can mobilize the fluid so we are going to need to evaluate his left ventricular and valvular function with echocardiogram in the morning, ask Cardiology to help, will also check serial cardiac enzymes and EKG, possible underlying coronary ischemia or coronary insufficiency. 1. Stage 5 chronic kidney disease, he may very well now be at the point where we need to initiate dialysis, Dr. Carver will be following see if we can mobilize any volume with the diuresis. 2. He has a history of hypertension however he had some accelerated hypertension at this time in fact probably we have to label this malignant hypertension because his renal function has deteriorated with this as well and he is in congestive heart failure so I would I guess be hypertensive urgency. He has a history of transient ischemic attack, no new neurologic deficits. Chest x-ray pending at the time, I will look at chest x-ray. cc: Dillon Aleman MD
[2016-10-06] MEDS ORDERED: LASIX 200 MG in NS 25 ML IV SCH (20:00)
[2016-10-06] MEDS ORDERED: APRESOLINE IV ONE (20:12)
[2016-10-06] MEDS ORDERED: LABETALOL IV PRN (20:37)
[2016-10-06] MEDS ORDERED: ZOFRAN IV PRN (20:37)
[2016-10-06] MEDS: XOPENEX NEB INH SCH ×2 (20:40→23:27)
[2016-10-06] MEDS: ATROVENT NEB INH SCH ×2 (20:40→23:27)
[2016-10-06 20:56] LABS: ALLEN TEST YES; BE -4.8 mmoll (-3.0-3.0); BLOOD TYPE ARTERIAL; DRAW SITE R RADIAL; METHB 0.7 % (0.0-1.5); O2(CT) 13.6 mL/dL (15.0-23.0); PCO2(98.6) 30 mmHg (35-45); PO2(98.6) 85 mmHg (60-100); SAMPLE BLOOD; SAO2 99.5 % (95.0-100.0); THB 9.9 g/dL (11.5-17.4); pH(98.6) 7.41 (7.35-7.45)
[2016-10-06 20:57] LABS: MODALITY BI PAP
[2016-10-06] MEDS ORDERED: LONITEN PO SCH (21:00)
[2016-10-06] MEDS: HEPARIN SUBQ SCH (22:11)
[2016-10-06] MEDS: CATAPRES PO SCH (22:11)
--- NOTE | 2016-10-06 22:21 | CONSULTATION ---
DATE OF CONSULTATION: 10/06/2016 REASON FOR CONSULTATION: Chronic kidney disease and flash pulmonary edema. HISTORY OF PRESENT ILLNESS: Mr. Sparks is a 46-year-old black male who is well known to me. He has hypertensive nephrosclerosis with baseline creatinine of 6. He has a left forearm AV fistula anticipating dialysis in the future. We have been treating his blood pressure and titrating his medication. He is currently taking minoxidil, labetalol, lisinopril, clonidine. Recently we had to increase his minoxidil. His mother states that she brought him to the emergency room because his blood pressure has been high in the last 2 days. He was symptoms-free at home but after arrival in the emergency room he developed worsening shortness of breath. His blood pressure was markedly elevated. He has had more swelling in the last week to 2 weeks as we have increased his minoxidil. His evaluation in the emergency room led to a diagnosis of pulmonary edema. This was supported by chest x-ray abnormalities. He has been treated with nitrates and BiPAP, as well as IV labetalol. An IV nitroglycerin drip has been ordered as well. He has had 1 dose of IV Lasix 200 mg. He is feeling better. He states he wants to eat. No chest pain throughout. PAST MEDICAL HISTORY: As above. HOME MEDICATIONS: As above. ALLERGIES: None. SOCIAL HISTORY: He is and lives with his mother. Has a significant other. No alcohol or tobacco. FAMILY HISTORY: Positive for hypertension but no ESRD. REVIEW OF SYSTEMS: Otherwise noncontributory. PHYSICAL EXAMINATION: Vital Signs: Blood pressure 221/154, heart rate 77, respirations 28. Afebrile. General: He is a young healthy man on BiPAP. No acute distress. Skin: Warm and dry. HEENT: Conjunctivae are pink. Pupils are equal. Oropharynx is not examined. Neck: Supple. Trachea is midline. Neck veins are not visible. Heart: Regular without gallops or murmurs. Lungs: Have equal breath sounds. No crackles or wheezes, accessory muscle use or retractions. Abdomen: Soft, nontender. Bowel sounds are present. No organomegaly, masses or bruits. Extremities: Have 2+ edema in the legs. Functional fistula in the left forearm. Neurologic Exam: Nonfocal. LABORATORY DATA: Reviewed. IMPRESSION: Pulmonary edema: Likely secondary to acute diastolic heart failure from severe hypertension. His treatment thus far has been appropriate. We will continue his home medications and IV nitroglycerin and BiPAP as needed. He has no indications for dialysis at this time. We will only implement this if we are unable to manage his volume status with medication. Electrolytes are in target, acid-base is in target and anemia is in target. cc: Iggy Carver MD
[2016-10-06] MEDS: LONITEN PO SCH (23:14)
[2016-10-07] MEDS: ATROVENT NEB INH SCH ×6 (03:10→23:10)
[2016-10-07] MEDS: XOPENEX NEB INH SCH ×6 (03:10→23:10)
[2016-10-07 04:31] LABS: MANUAL DIFF NEEDED? NO
[2016-10-07 04:32] LABS: ALLEN TEST YES; BE -4.5 mmoll (-3.0-3.0); BLOOD TYPE ARTERIAL; DRAW SITE R RADIAL; METHB 1.2 % (0.0-1.5); O2(CT) 13.5 mL/dL (15.0-23.0); PCO2(98.6) 35 mmHg (35-45); PO2(98.6) 75 mmHg (60-100); SAMPLE BLOOD; SAO2 97.5 % (95.0-100.0); THB 10.1 g/dL (11.5-17.4); pH(98.6) 7.37 (7.35-7.45)
[2016-10-07 04:33] LABS: MODALITY BI PAP
[2016-10-07 04:42] LABS: BASO% 0.2 % (0.0-0.8); EOS# 0.08 X1000 (0.0-0.7); EOS% 0.9 % (0.0-10.0); HEMATOCRIT 28.9 % (42.0-52.0); HEMOGLOBIN 9.7 g/dL (14.0-18.0); IMM GRAN# 0.02 X1000 (0.0-0.04); IMM GRAN% 0.2 % (0.0-0.5); LYMPH# 0.81 X1000 (1.2-3.4); LYMPH% 9.5 % (20.5-51.1); MCH 28.9 PG (27-31); MCHC 33.6 g/dL (33-37); MONO# 0.66 X1000 (0.11-0.59); MONO% 7.7 % (1.7-9.3); MPV 10.5 FL (7.4-10.4); NEUT% 81.5 % (42.2-75.2); PLT 155 X1000 (130-400); RBC 3.36 XMIL (4.7-6.1)
[2016-10-07 04:56] LABS: INR 1.08; PROTIME 11.4 Seconds (9.2-11.7); PTT 25.7 Seconds (22.0-36.0)
[2016-10-07 05:57] LABS: ALBUMIN 3.7 g/dL (3.5-5.0); CALCIUM 8.7 mg/dL (8.8-10.2); MAGNESIUM 2.1 mg/dL (1.5-2.7); POTASSIUM 4.9 mmol/L (3.5-5.1); TOTAL BILIRUBIN 0.6 mg/dL (0.20-1.00); TOTAL PROTEIN 5.8 g/dL (6.3-8.3)
[2016-10-07] MEDS ORDERED: LABETALOL IV PRN (06:27)
[2016-10-07] MEDS: PRINIVIL PO SCH (08:24)
[2016-10-07] MEDS: HEPARIN SUBQ SCH ×2 (08:24→20:55)
[2016-10-07] MEDS: CATAPRES PO SCH ×2 (08:25→20:57)
[2016-10-07] MEDS: LONITEN PO SCH ×2 (08:25→20:56)
--- NOTE | 2016-10-07 08:51 | Diag Imaging Result Doc PS360 ---
CHEST-PORTABLE - 10/07/2016 INDICATION: sob TECHNIQUE: COMPARISON: 10/06/2016 FINDINGS: There is decrease in the density of the diffuse bilateral infiltrates/edema. Stable cardiomegaly. There is decrease in the trace pleural effusions. IMPRESSION: Improvement from prior. Electronically signed by Cole Guzmán 10/07/2016 8:49 AM
[2016-10-07] MEDS ORDERED: LASIX IV ONE (09:12)
--- NOTE | 2016-10-07 09:32 | CONSULTATION ---
DATE OF CONSULTATION: 10/07/2016 REQUESTING PHYSICIAN: Hospitalist Service, Dillon Aleman REASON FOR CONSULTATION: Pulmonary edema, CHF. HISTORY OF PRESENT ILLNESS: Mr. Sparks is a very pleasant 46-year-old black gentleman who was brought to the emergency room by his mother yesterday, Saturday10/06/2016, at about 5:30 p.m. because she had noted that he was developing more swelling of the lower extremities, and his blood pressure became markedly elevated. Upon arrival to the emergency room department, they documented a blood pressure of 231/107 and subsequently 285/177. The patient was given Lasix, nitroglycerin past, IV nitroglycerin, a BiPAP system, and overnight he has improved. The initial chest x-ray shows extensive pulmonary edema, interstitial infiltrates and cardiomegaly. The patient denies having any chest pains. The patient denies having any palpitations or syncope. Interestingly, the shortness of breath actually developed while in the emergency room after presentation. PAST MEDICAL HISTORY: Positive for significant hypertension for many years since he was in his 20s. Lately he developed renal insufficiency, and he has been followed by Dr. Carver over the past 18 months. The patient does not have any other major medical condition that he is aware of. ALLERGIES: Negative. HOME MEDICATIONS: At the time of the present admission are listed as minoxidil 5 twice a day, lisinopril 20 twice a day, Levaquin 250 daily, labetalol 200 twice a day, clonidine 0.2 three times a day, calcitriol 0.5 mcg daily, iron fumarate daily. REVIEW OF SYSTEMS: The patient says that he has not been well for a while. He believes that taking the blood pressure medications make him feel weak. He wobbles. He seems to be not very steady on his feet, according to his mother. SOCIAL HISTORY: The patient worked for 27 years at the [employer] here in [place]. He had to retire or go on disability on account of his medical condition. He is . He has 2 grownup children, ages 25 and 22. He lives by himself. He does not smoke at all. Occasional beer. FAMILY HISTORY: Negative for heart disease. PAST SURGICAL HISTORY: Positive for the fact that they have constructed a fistula in the left upper extremity by Dr. Velasquez Anderson on 05/04/2016, that is a translocated left radial cephalic arteriovenous fistula. DIAGNOSTIC DATA: His laboratory work at the time of admission showed his hemoglobin was 11 g, white cell count 4400, hematocrit 31.9. The pO2 is 85, pCO2 is 30, pH is 7.41. Sodium is 143, potassium 4.7, BUN is 62, creatinine 6.8, today creatinine is up to 7.3. His troponin has never been checked before. Troponin number 1 is 0.102, number 2 is 0.110. His initial EKG at 6:37 p.m. shows sinus rhythm, LVH, repolarization abnormality consistent with LVH. Subsequent EKG done this morning at 6:53 in the morning shows sinus rhythm, LVH, again similar repolarization abnormality consistent with LVH. Of note, the patient was admitted to this hospital with a presumed diagnosis of pneumonia in 06/2016. At that time, a chest x-ray and a CT scan of the chest revealed extensive bilateral alveolar infiltrates. He has not had any interval x-ray in this hospital between that admission and the current admission, so we do not know to what extent that infiltrate cleared up. PHYSICAL EXAMINATION: Today, blood pressure is 193/122, temperature 99.2, pulse 117. He is awake, alert, oriented, in no distress. HEENT shows no abnormalities. His neck veins are distended all the way up about 10 cm. His chest shows diminished breath sounds with crepitans bilaterally. Heart sounds are regular and rhythmic, questionable fourth heart sound. Systolic murmur, ejective, 2/6 over the aortic area. Abdomen is obese. There is no hepatomegaly. Extremities showed trace to 1+ edema bilaterally. He has very strong bounding pulses all the way down to the feet. Neurologic: He follows commands, moves all 4 extremities. IMPRESSION: 1.The patient presents with acute pulmonary edema. This is probably acute systolic and diastolic heart failure on top of chronic diastolic heart failure due to his 2. detention severe hypertension compounded by 3. advanced renal insufficiency. The patient is stage 5 of chronic kidney disease. Using the standard formula to calculate GFR, the number is 15 mL per minute which basically places him at stage 5. RECOMMENDATIONS: At this point in time, we will try to accomplish euvolemia by means of high doses of diuretics. We will use nitrates and hydralazine to try to unload his heart, both preload and afterload. The patient probably has reached the point where he will really benefit tremendously by hemodialysis. That will probably decrease the need for multiple medications to control his blood pressure and may improve his actual quality of life. We will discuss this with the Nephrology Service. We will follow him along. Thank you for asking us to participate in his evaluation. cc: Nigel Venegas MD MTDD
[2016-10-07] MEDS ORDERED: LASIX 200 MG in NS 25 ML IV ONE (10:00)
--- NOTE | 2016-10-07 11:35 | PROGRESS NOTE ---
DATE: 10/07/2016 SUBJECTIVE: Mr. Sparks is breathing much better, feeling much better. Able to lay almost supine. PHYSICAL EXAMINATION: Vital Signs: Temperature 99.2 degrees, pulse 117, respirations 20, blood pressure 193/122. HEENT: Pupils are equal and round. Lungs: Are clear in all lung burciaga. CVP about 10 cm water pressure. Abdomen: Soft. Cardiovascular Examination: Regular rhythm and rate without murmur or S3. Is and Os: Urine output 800 mL. LAB: White count 8540, hematocrit 28, platelet count 155,000. Sodium 143, potassium 4.9, chloride 107, BUN 65, creatinine 7.3. Troponin 0.102 and 0.11. ASSESSMENT AND PLAN: 1. Flash edema. It is probably related to accelerated hypertension, increased afterload. It has improved and he has diuresed a little bit. 2. He also has a stage V chronic kidney disease. He is off the BiPAP now. He has a left arm AV fistula. Suspect we will go ahead and get dialysis going. Dr. Carver had evaluated him yesterday. 3. Electrolytes are in target. Acid base is on target. Anemia is on target. I think he has no indications for dialysis at this time and plan to only implement this if we cannot manage his volume status with medication so he does appear improved. 4. Dr. Venegas has seen. He has probably acute systolic and diastolic heart failure on top of chronic diastolic heart failure due to long-term severe hypertension compounded by advanced renal insufficiency and stage V chronic kidney disease so we are using high doses of diuretics and it seems to be improving. Used nitrates and hydralazine to control and unload his heart, both preload and afterload and see how we do. 5. Chest x-ray shows improvement. There is decrease in density, diffuse bilateral infiltrate and edema. 6. Intakes and outputs. Output, actually what I pull up is 425 mL. 7. Review of his orders. He is getting labetalol IV p.r.n. He is on minoxidil 55 mg p.o. b.i.d. per Dr. Carver, Prinivil [address] Carver. Labetalol, we will give p.r.n. 20 mg IV q.4 hours. Blood pressures look better. The nitroglycerin drip was stopped. cc: Dillon Aleman MD
[2016-10-07] MEDS: APRESOLINE PO SCH ×2 (12:06→20:57)
--- NOTE | 2016-10-07 18:53 | CONSULTATION ---
DATE OF CONSULTATION: 10/07/2016 REQUESTING PHYSICIAN: Dillon Aleman MD REASON FOR CONSULTATION: Respiratory failure. HISTORY OF PRESENT ILLNESS: Mr. Sparks is a 46-year-old black male with a long history of severe hypertension, hypertensive nephrosclerosis with stage 5 kidney disease, who was admitted to the hospital in June of this year with a systolic blood pressure greater than [address] scan which revealed diffuse pulmonary edema. Patient improved with blood pressure control, although chest x- ray did was not performed to demonstrate radiographic clearing. The patient has had increased difficulty with blood pressure control with recent adjustments in his blood pressure medications. The patient has had increased edema over the last 2-3 days. Patient's mother checked his blood pressure and was greater than 200. He was not having significant shortness of breath at that juncture. The patient presented to the emergency room and developed significant dyspnea after presentation. Initial blood pressure in the emergency room revealed a systolic of 231, but subsequently decreased to a systolic pressure of 285 over the next hour. He was initiated on BiPAP for bilateral pulmonary infiltrates and blood pressure medications. Clinically, he is improving. Blood pressure remains elevated. PAST MEDICAL HISTORY/PROBLEM LIST: 1. Problem list end-stage renal disease. He has had a fistula placed in the left forearm. He has not yet initiated dialysis. 2. Previous transient ischemic attacks without neurologic deficits. SOCIAL HISTORY: Patient is . No alcohol or tobacco use. FAMILY HISTORY: Positive for dyslipidemia and hypertension. REVIEW OF SYSTEMS: Negative for fevers, chills, or chest pain. PHYSICAL EXAMINATION: General: Reveals a well-developed, well-nourished black male. Vital Signs: Blood pressure 190-175/100, heart rate 102, respiration rate 16, oxygen saturation 99%. HEENT: Pupils are equal and reactive. Oropharynx is clear. Neck: Supple. Chest: Reveals bilateral crackles. Cardiac Examination: Regular rate and rhythm with prominent PMI. Abdomen: Soft without hepatosplenomegaly. Extremities: Reveal trace to 1+ edema. IMPRESSION: A 46-year-old black male with severe hypertension, who presented to the emergency room in June of this year with hypertensive crisis and acute respiratory failure. The patient has re-presented with a second episode of hypertensive crisis with severe respiratory failure. He appears to have mild fluid overload on examination. RECOMMENDATIONS: 1. Aggressive blood pressure management, as per Nephrology. 2. Wean oxygen as tolerated. 3. Additional recommendations pending hospital course. cc: Nate Garcia MD
[2016-10-08] MEDS: NITROGLYCERIN 50 MG/D5W 50 MG/250 ML IV.SOLN IV SCH (02:33)
[2016-10-08] MEDS: ATROVENT NEB INH SCH ×6 (04:00→22:17)
[2016-10-08] MEDS: XOPENEX NEB INH SCH ×6 (04:00→22:17)
[2016-10-08] MEDS: APRESOLINE PO SCH ×3 (05:06→21:04)
--- NOTE | 2016-10-08 05:31 | EKG Report ---
Test Performed on : 10/07/2016 06:53:55 AM Test Reason : chest pain Blood Pressure : / mmHG Vent. Rate : 088 BPM Atrial Rate : 088 BPM P-R Int : 174 ms QRS Dur : 092 ms QT Int : 400 ms P-R-T Axes : 061 008 090 degrees QTc Int : 484 ms Normal sinus rhythm. Possible Left atrial enlargement T wave abnormality, consider lateral ischemia Prolonged QT Abnormal ECG When compared with ECG of 06-OCT-2016 18:37, (Unconfirmed) Nonspecific T wave abnormality no longer evident in Inferior leads Confirmed by Pk RAVI, Asim Johnson ([id number]) on 10/09/2016 2:15:22 PM
--- NOTE | 2016-10-08 07:33 | Diag Imaging Result Doc PS360 ---
EXAM: CHEST-2 VIEWS HISTORY: pulmonary edema TECHNIQUE: PA and lateral chest COMMENT: There is improvement in the pulmonary edema which was present on 10/07/2016. There is still some pulmonary vascular engorgement and interstitial pulmonary edema. IMPRESSION: Improved pulmonary edema. Electronically signed by Jose Orona 10/08/2016 7:31 AM
[2016-10-08] MEDS ORDERED: LASIX IV ONE (08:35)
[2016-10-08 08:37] LABS: URINE CULTURE NEEDED? NO; URINE MICRO REVIEW NEEDED? NO; URINE SOURCE CLEAN CATCH
[2016-10-08 08:44] LABS: BILIRUBIN URINE NEGATIVE (NEGATIVE); BLOOD URINE TRACE (NEGATIVE); COLOR YELLOW; GLUCOSE URINE NEGATIVE (NEGATIVE); LEUKOCYTES URINE NEGATIVE (NEGATIVE); NITRITE URINE NEGATIVE (NEGATIVE); PH URINE 5.5; PROTEIN URINE 100 mg/dL (NEGATIVE); SP GRAVITY URINE 1.008; TURBIDITY URINE CLEAR (CLEAR); UR EPITHELIAL CELLS <10 /HPF (<10); URINE BACTERIA NEGATIVE /HPF; URINE RBC <10 /HPF (<10); URINE WBC <10 /HPF (<10); UROBILINOGEN URINE NORMAL (NORMAL)
--- NOTE | 2016-10-08 08:47 | ECHO REPORT ---
ORDER DATE: 10/06/2016 INTERPRETING PHYSICIAN: Dr. Venegas REQUESTING PHYSICIAN: CLINICAL INDICATIONS: This is a 46-year-old male with CHF, severe hypertension , pulmonary edema. M-MODE MEASUREMENTS: Right ventricle: 3.3 cm. Left ventricle end diastole: 6.1 cm. Left ventricle end systole: 3.8 cm. Posterior wall: 1.6 cm. Interventricular septum: 1.9 cm. Left atrium: 4.7 cm. Aortic root: 3.5 cm. SUMMARY OF 2-DIMENSIONAL IMAGIN. The left ventricle is significantly enlarged and is significantly hypertrophic. There is severe hypertrophy of the ventricular wall. In some of the 2D measurements, it reaches almost 2 cm which is consistent with severe hypertrophy. The global left ventricular systolic function is normal. Ejection fraction is estimated to be in the range of 60 % to 65%. No wall motion abnormality is noted. 2. The right ventricle is mildly enlarged. 3. Pulmonic valve was normal with mild degree of regurgitation. 4. Aortic valve has 3 cusps, they open normally. Color flow mapping is unremarkable. The aortic root is not dilated. There is no evidence of proximal dissection. 5. Physiologic pericardial effusion is present. There is also a pleural effusion noted. 6. Both atria appear to be moderately enlarged. 7. The tricuspid valve shows mild degree of regurgitation. 8. The inferior vena cava did not appear to be severely dilated. 9. The pulmonary pressure is estimated to be somewhere in the range of 29 to 34 mmHg. 10.The mitral valve looks normal. Color flow mapping indicates very mild degree of regurgitation. 11.The pulse wave Doppler of mitral inflow shows a "normal" E/A ratio. The deceleration time is shortened, indicating or suggesting elevation of left atrial pressure. 12.The tissue Doppler of septal and lateral mitral annulus averages 8 cm. 13.The E/E prime ratio is 15 which would favor elevation of left atrial pressure. 14.The pulse wave Doppler of pulmonary venous flow is normal. 15.There is no evidence of masses or thrombus. 16. At the conclusion of the case, because of suspected PFO, agitated saline was injected. It showed no evidence of right to left shunt after adequate opacification of the right sided chambers. CONCLUSIONS: 1. Severe left ventricular hypertrophy with wall thickness very close to 2 cm with normal wall motion. Ejection fraction is 60% to 65%. 2. Elevated left atrial pressure without abnormal velocities of the mitral annulus, suggesting a state of fluid overload. 3. No evidence of any significant valvular abnormality. 4. Moderately enlarged atria. 5. Trivial pericardial effusion is present, and also pleural effusion appears to be present. 6. Agitated saline injected to evaluate for PFO: negative study for right to left shunt. Clinical correlation is strongly recommended. The patient's case is consistent with a state of fluid overload. cc: MD Paola Norman CRNP MTDD
--- NOTE | 2016-10-08 08:52 | PROGRESS NOTE ---
DATE: 10/08/2016 CHIEF COMPLAINT: Shortness of breath. SUBJECTIVE: Mr. Sparks has improved significantly. He experienced good diuresis after the massive dose of Lasix from yesterday. His chest x-ray also is clearing up. He has been transferred from ICU to the medical floor. His blood pressure measurements lately are better also. He is not having any chest pain. OBJECTIVE: Temperature is 98.4, pulse 83, respirations 20, blood pressure 159/80. He is awake, alert and oriented, no distress. Neck veins are distended; however, they are not as distended as yesterday. Chest in general shows better excursion, and I do not hear any definite crepitans. Heart sounds are regular and rhythmic. He does have a systolic murmur over the apical area of 1 to 2/6. There is no gallop. Abdomen is nontender. Extremities showed no edema at this time. Neurologic: He moves all 4 extremities, follows commands. DIAGNOSTIC DATA: Blood work today has not been done. Telemetry shows sinus rhythm. Echocardiogram done yesterday shows severe left ventricular hypertrophy. The wall thickness is nearly 2 cm. Ejection fraction is normal in the range of 60% to 65% without significant valvular abnormality. The velocity of mitral annulus was normal; however, the deceleration time of the E wave is short with enlargement of both atria, pleural effusion and a trace pericardial effusion, which is all consistent with a state of chronic fluid overload and chronic severe hypertension. IMPRESSION: 1. The patient is with advanced renal insufficiency secondary to longstanding severe hypertension with severe concentric left ventricular hypertrophy. 2. Pulmonary edema, congestive heart failure, acute diastolic on top of chronic overload of the left ventricle from his watermelon inspector hypertension and chronic renal insufficiency. RECOMMENDATIONS: From cardiology, I would suggest to continue giving him doses of diuretics as needed to accomplish euvolemia. In my opinion, this patient is really very close to the point where he will need dialysis for stabilization of his severe hypertension and his chronic fluid overload. We will follow him along. Thank you for the opportunity to participate in his evaluation. cc: Nigel Venegas MD
[2016-10-08] MEDS ORDERED: HEPARIN IV PRN (10:37)
[2016-10-08] MEDS ORDERED: TIGHT: 0.2 ML/HR MISC PRN (10:37)
[2016-10-08] MEDS ORDERED: NS 2,000 ML MISC PRN (10:37)
[2016-10-08] MEDS: HEPARIN SUBQ SCH ×2 (10:40→21:04)
[2016-10-08] MEDS: PRINIVIL PO SCH (10:41)
[2016-10-08] MEDS: CATAPRES PO SCH ×2 (10:41→21:04)
[2016-10-08] MEDS: LONITEN PO SCH ×2 (10:41→21:04)
--- NOTE | 2016-10-08 10:53 | PROGRESS NOTE ---
DATE: 10/08/2016 TIME SEEN: 07:10. SUBJECTIVE: Mr. Sparks is resting quietly in bed. Mother is at his bedside. He denies any chest pain. No increased work of breathing. States that he is feeling just slightly better. OBJECTIVE: His most recent vital signs: Temperature is 98.4, blood pressure 159/80, heart rate 83, respirations are 20. He is on 3 L nasal cannula. Last recorded saturation is 100%. He has had 385 in, 1025 out per void. LABORATORIES: His most recent labs: Sodium 143, potassium 4.9, chloride 107, CO2 of 19, BUN 65, creatinine 7.3, glucose 92. Anion gap is 17. Calcium is 8.7, albumin is 3.7. Last TSH 2.02. White count 8.54, hemoglobin 9.7, hematocrit 28.9, with a platelet count of 155, 000. Urinalysis is positive for proteinuria, trace blood, urine bacteria is negative. These were all drawn on the . He has no labs this a.m. These are all still pending. PHYSICAL EXAMINATION: General: This is a 46-year-old male. He is resting quietly in bed. He is in no acute distress. Skin: Warm and dry. HEENT: Normocephalic, atraumatic. Conjunctiva is pale. He has ASHANTI. Mucous membranes moist. Neck: Supple. Trachea midline. No JVD. Cardiovascular: Regular rate and rhythm without murmur or gallop. Lungs: Clear to auscultation anteriorly. Equal excursion. Abdomen: Soft, nontender. Positive bowel sounds. Genitourinary: Not inspected. Adequate urine out per void. Extremities: One to 2+ lower extremity edema. Fistula intact to the left forearm. Neurological: Alert and oriented x3. ASSESSMENT AND PLAN: 1. Acute kidney injury on chronic kidney disease. Patient's creatinine is just slightly above his baseline. He has no uremic symptoms except for complaints of fluid volume overload. Cardiology and primary care are attempting to take care of this with implementation of medications. We are available to assist in regards with this management if needed. 2. Electrolytes and acid-base balance. These are stable. 3. Anemia. This remains close to target. 4. Hypertension. Patient has had an improvement in his blood pressure. This appears to be doing well. I would to thank you for allowing us to follow with this patient. Seen, data reviewed, discussed with Soraya Glynn on 10/08/16. I agree with the above assessment and plan of care. rg Dictated by JERRY Silva for Iggy Carver MD cc: JERRY Silva MD [facility]
[2016-10-08] MEDS ORDERED: NS 2,000 ML ONE ×2 (12:37→13:57)
[2016-10-08] MEDS ORDERED: HEPARIN ONE ×2 (12:38→13:58)
--- NOTE | 2016-10-08 14:55 | PROGRESS NOTE ---
DATE: 10/08/2016 SUBJECTIVE: He is supposed to get hemodialysis today. Discussed with Dr. Carver. Breathing is much better. Volume status better. Blood pressure well controlled. Much better controlled. OBJECTIVE: Vital signs: Temperature 98.4 degrees, pulse 93, respirations 16, blood pressure 159/90. CVP is about 10 cm water pressure from angle of Og. Respiratory: Lungs are clear. Cardiovascular: Regular rhythm and rate without murmur or S3. Abdomen: Soft. Skin: Warm and dry. Urine output over a liter. LABORATORY FROM YESTERDAY: White count 8540, hematocrit 28, platelet count 155,000. Chemistry: Sodium 143, potassium 4, chloride 107. BUN 65, creatinine 73. Troponin has been mildly elevated at 0.102, 0.110., 0.108. ASSESSMENT AND PLAN: 1. Acute kidney injury on chronic kidney disease. Going to initiate hemodialysis. He is stage 5. Volume status is improved a little bit. Acid-base and electrolytes acceptable. Anemia stable. 2. Hypertension. Presented with acute congestive heart failure due to accelerated blood pressure and that has improved, so continue his p.o. medications. He may get to go home today. We will see how his pressure does and adjust those medications this afternoon. cc: Dillon Aleman MD
--- NOTE | 2016-10-08 19:04 | PROGRESS NOTE ---
DATE: 10/08/2016 SUBJECTIVE: The patient reports he feels significantly better. He has completed 1 hemodialysis which was initiated today. OBJECTIVE: Vital signs: Blood pressure 167/78, heart rate 89, respiration rate 18, oxygen saturation 96% on room air. HEENT: Pupils are equal and reactive. Oropharynx is clear. Neck: Supple. Chest: Reveals good air entry bilaterally. There is faint crackles in the bases. Cardiac exam: Regular rate and rhythm. Normal S1, normal S2 with a prominent PMI. Abdomen: Is soft without hepatosplenomegaly. Extremities: Reveal trace edema. LABORATORIES: Chest x-ray performed 7 a.m. this morning reveals marked improvement in the severe pulmonary edema seen 10/07/2016. There is mild residual vascular congestion and interstitial edema present. IMPRESSION: A 46-year-old with end-stage renal disease, severe hypertension, who presented with hypertensive crisis and acute pulmonary edema. With blood pressure control he has had significant improvement. He has been initiated on hemodialysis. His respiratory failure has resolved. RECOMMENDATIONS: 1. Dialysis and blood pressure control as you are doing. 2. No additional pulmonary recommendations, will sign off. Please call if I can be of further assistance. cc: Nate Garcia MD
[2016-10-08 23:55] LABS: CALCIUM 8.6 mg/dL (8.8-10.2); MAGNESIUM 2.2 mg/dL (1.5-2.7)
[2016-10-09] MEDS: XOPENEX NEB INH SCH ×4 (03:47→15:22)
[2016-10-09] MEDS: ATROVENT NEB INH SCH ×4 (03:47→15:22)
[2016-10-09] MEDS: APRESOLINE PO SCH ×2 (05:59→15:19)
[2016-10-09] MEDS ORDERED: HEPARIN IV PRN (07:16)
[2016-10-09] MEDS ORDERED: TIGHT: 0.2 ML/HR MISC PRN (07:16)
[2016-10-09] MEDS ORDERED: NS 2,000 ML MISC PRN (07:16)
--- NOTE | 2016-10-09 07:40 | PROGRESS NOTE ---
DATE: 10/09/2016 CHIEF COMPLAINT: Hypertension, shortness of breath. SUBJECTIVE: Mr. Sparks is feeling much better. He underwent one dialysis session yesterday. He is not having any chest pain. He feels like he can put more air in his lungs. OBJECTIVE: Vital signs: Blood pressure 148/74, temperature 97.8, pulse 76, respirations 18. General: He is awake, alert and oriented, in no distress. HEENT: Unremarkable. Chest: Now sounds very clear to auscultation and percussion. Cardiac: Heart sounds are regular and rhythmic. Questionable systolic apical murmur. Abdomen: Nontender. Extremities: Showed good pulses. He has a loud bruit in the left arm and strong thrill in the left arm. Neurologic: Moves four extremities, follows commands. LABORATORY DATA: His blood work from yesterday showed a BUN of 58, creatinine 6.8, sodium 141, potassium 5.0. Blood work from today is pending. IMPRESSION: 1. Patient without presented with acute pulmonary edema consistent with acute diastolic heart failure on top of chronic diastolic heart failure. The patient has severe left ventricular hypertrophy from longstanding hypertension. 2. Chronic renal insufficiency, progressive. RECOMMENDATIONS: Patient appears to be better now after first session of dialysis. From my viewpoint, the patient will do well with present regimen of medications and hemodialysis. I will leave up to Dr. Carver's expertise to adjust the medicines now that he is on dialysis. I will be available to check on him if need be. I will be very happy to arrange for a followup with me at the office. Thank you again for the opportunity to participate in his evaluation. cc: Nigel Venegas MD
[2016-10-09 08:15] LABS: ALBUMIN 3.8 g/dL (3.5-5.0); CALCIUM 8.8 mg/dL (8.8-10.2); POTASSIUM 4.1 mmol/L (3.5-5.1)
[2016-10-09] MEDS ORDERED: HEPARIN ONE (09:00)
[2016-10-09] MEDS ORDERED: NS 2,000 ML ONE (09:00)
[2016-10-09 10:18] LABS: HEPATITIS PROFILE ACUTE SEE COMMENTS
--- NOTE | 2016-10-09 11:31 | PROGRESS NOTE ---
DATE: 10/09/2016 TIME SEEN: 0825. SUBJECTIVE: Mr. Sparks resting quietly in bed. He is waiting for his breakfast. His mother is at his bedside. OBJECTIVE: Vital signs: His most recent vital signs, temperature 97.8 degrees , blood pressure 148/74, heart rate 76, respirations 18. He is on 4 L nasal cannula. Last recorded saturation 98%. He has had 360 in. He has had 3450 out. He is net 4 L in the negative after 2 L of dialysis yesterday. Labs: His most recent labs, sodium 142, potassium 4.1, chloride 103, CO2 26, BUN 54, creatinine 6.5, glucose 91, anion gap 13, calcium 8.8, phosphorus 4.5, albumin 3.8. Previous hemoglobin 9.7 on the . PHYSICAL EXAMINATION: General: This is a 46-year-old male. He is currently resting in bed. He is in no acute distress. Skin: Warm and dry. HEENT: Normocephalic, atraumatic. Conjunctivae pink. He has ASHANTI. Mucous membranes moist. Neck: Supple. Trachea midline. No JVD. Cardiovascular: Regular rate and rhythm. He is without murmur or gallop. Lungs: Clear to auscultation anteriorly. Equal excursion. Abdomen: Soft, nontender. Positive bowel sounds. Genitourinary: Not inspected. Adequate urine out with assistance with hemodialysis at this time for fluid volume overload. Extremities: Have 2+ lower extremity edema. He has a fistula intact to the left forearm with good palpable thrill. Neurological: Alert and oriented x3. ASSESSMENT AND PLAN: 1. Acute kidney injury on chronic kidney disease. Patient's BUN and creatinine continue to elevate. He had a fistula in the left forearm that is ready for use. Secondary to his fluid volume overload we started dialysis yesterday. He tolerated 2 hours of dialysis with 2 L of filtration. We will plan for dialysis today. We will plan for 3 hours today[address] We will place him on a 2 K bath. We will attempt 3 L of ultrafiltration and plan for dialysis again in the a.m. This is been discussed with the family. We will send information to the outpatient clinic in [place] for a dialysis appointment upon discharge. 2. Electrolytes and acid-base balance. These are stable. 3. Anemia. This is in target. 4. Hypertension. This is improved with dialysis. I would like to thank you for allowing us to follow with this patient. Seen, data reviewed, discussed with Soraya Glynn on 10/09/16. I agree with the above assessment and plan of care. rg Dictated by JERRY Silva for Iggy Carver MD cc: JERRY Silva MD [facility]
--- NOTE | 2016-10-09 14:24 | DISCHARGE SUMMARY ---
ADMISSION DATE: 10/06/2016 DISCHARGE DATE: 10/09/2016 HOSPITAL COURSE: This is a 46-year-old who presented having swelling in his feet for a couple of weeks and began having more shortness of breath. By the time he arrived to the emergency room, he was very dyspneic and diaphoretic. His blood pressures were 220/120, and we had to put him on BiPAP. I gave him high dose Lasix, and I put him on an IV nitroglycerin drip. Moved into the unit, and it worked on his afterload and preload. He improved pretty dramatically. He already has an AV fistula. He has chronic kidney disease, stage 5, and they initiated hemodialysis per Dr. Graham on 10/08/2016 and another course on 10/09/2016. He tolerated these well. Breathing was comfortable. Looking at his blood pressures which have come down nicely. Plan to let him go home. DISCHARGE MEDICATIONS: 1. Will keep him on Calcitriol 0.5 mg p.o. daily. 2. Clonidine 0.2 mg t.i.d. 3. Integra Plus capsule 1 a day. 4. Trandate 200 mg p.o. b.i.d. 5. Lisinopril 20 mg b.i.d. 6. Minoxidil 5 mg p.o. b.i.d. PLAN: He is to get his dialysis, again, I think tomorrow. I think he is going to use the [facility] and followup with Dr. Carver and follow up with his primary care. cc: Dillon Aleman MD
[2016-10-09] MEDS: CATAPRES PO SCH (15:18)
[2016-10-09] MEDS: PRINIVIL PO SCH (15:18)
[2016-10-09] MEDS: HEPARIN SUBQ SCH (15:19)
[2016-10-09] MEDS: LONITEN PO SCH (15:19)
[2016-10-09 15:47] VITALS: BP 167/82
== END 2016-10-09 16:38 | disposition home or self-care (01) ==
LOC: ED 17:01 → SUATTDRO 19:13 → ICU 19:13 → 3N 10-08 02:38
PROVIDERS: ATTEND Emergency Medicine